=== PATIENT | male | born 1980 | race Caucasian/White ===

== ENCOUNTER 2016-09-22 21:26 | Emergency (ER) | payer OTHER | END 2016-09-22 22:14 | disposition left against medical advice (07) | LOC: UCCORT 21:26 | DX: T14.8 Other injury of unspecified body region (principal); W57.XXXA Bitten or stung by nonvenomous insect and other nonvenomous arthropods, initial encounter; Y93.9 Activity, unspecified; Y92.9 Unspecified place or not applicable; Y99.9 Unspecified external cause status; Z53.21 Procedure and treatment not carried out due to patient leaving prior to being seen by health care provider ==

== ENCOUNTER 2017-10-01 10:39 | Emergency (ER) | payer OTHER ==
[2017-10-01 11:06] VITALS: BP 124/83
--- NOTE | 2017-10-01 11:16 | UC ---
Lower Extremity/Ankle HPI - HPI Summary HPI Summary: 37 y/o male presents to the urgent care c/o left lower leg pain for the past week. Pt reports he traveled for 2 days before symptoms started. Then he was playing basketball and he made a twist and he felt a sudden pain in his left calf. He thought it was lack of stretching before doing exercise. Pain has increase and now is a throbbing pain 5/10 w/ movement w/o any radiation and 2/ 10 at rest. Pain is worse at night time. Pt has PMX of DVT and his brother had a stroke. He wants to make sure he doesn't have a clot in his leg and requests a duplex US. Pt denies fever, swelling, warm or redness around area, SOB, palpitation, chest pain, numbness or tingling over the left lower extremity, abdominal pain, N/V/D. He has not taking anything to alleviate symptoms. He has to travel to [place] for work and he is driving. - History of Current Complaint Chief Complaint: UCLowerExtremity Stated Complaint: PAIN LOWER LEFT LEG Time Seen by Provider: 10/01/17 11:13 Hx Obtained From: Patient Onset/Duration: Gradual Onset, Lasting Weeks - 1 week, Still Present, Worse Since - 2 days Severity Initially: Mild Severity Currently: Mild Pain Intensity: 5 - movement Pain Scale Used: 0-10 Numeric Aggravating Factor(s): Other - while slepping Alleviating Factor(s): Rest Able to Bear Weight: Yes - Risk Factors Gout Risk Factors: Negative DVT Risk Factors: Recent Travel, Family Hx of Clotting Disorder Septic Arthritis Risk Factor: Negative - Allergies/Home Medications Allergies/Adverse Reactions: Allergies Allergy/AdvReac Type Severity Reaction Status Date / Time cefaclor [From [facility]] Allergy Hives Verified 10/01/17 11:07 Home Medications: Home Medications NK [No Home Medications Reported] 10/01/17 [History Confirmed 10/01/17] PMH/Surg Hx/FS Hx/Imm Hx Previously Healthy: Yes - Pt denies PMHX Other History Of: Negative For: HIV, Hepatitis B, Hepatitis C, Anticoagulant Therapy - Surgical History Surgical History: Yes Surgery Procedure, Year, and Place: T&A - Family History Known Family History: Positive: None, Cardiac Disease Negative: Hypertension, Diabetes Family History: DVT, stroke - Social History Occupation: Employed Full-time Lives: With Family Alcohol Use: None Substance Use Type: None Substance Use Comment - Amount & Last Used: daily use. Last used today. Smoking Status (MU): Never Smoked Tobacco - Immunization History Most Recent Tetanus Shot: unsure Review of Systems Constitutional: Negative Skin: Negative Eyes: Negative ENT: Negative Respiratory: Negative Cardiovascular: Negative Gastrointestinal: Negative Genitourinary: Negative Motor: Negative Neurovascular: Negative Musculoskeletal: Other: - left calf pain s/p injury Neurological: Negative Psychological: Negative Is Patient Immunocompromised?: No All Other Systems Reviewed And Are Negative: Yes Physical Exam - Summary Physical Exam Summary: Vital Signs Reviewed: Yes Appearance: Well-Appearing, No Pain Distress, Well-Nourished, male w/o any apparent distress Eyes: Positive: Conjunctiva Clear - PERRLA< TAYLOR, fundi grossly WNL ENT: Positive: Normal ENT inspection, Hearing grossly normal, Pharynx normal, TMs normal, Uvula midline Neck: Positive: Supple, Nontender, No Lymphadenopathy Respiratory: Positive: Chest non-tender, Lungs clear, Normal breath sounds, No respiratory distress Cardiovascular: Positive: RRR, No Murmur, Pulses Normal, Brisk Capillary Refill Abdomen Description: Positive: Nontender, No Organomegaly, Soft. Negative: CVA Tenderness (R), CVA Tenderness (L) Bowel Sounds: Positive: Present Extremities: L extremity without deformity or asymmetry when compared to the R. No soft tissue swelling or edema. No overlying erythema, warmth, discoloration. No lesions or break in skin integrity. Diameter of calves are equal. Soft tissues of posterior lower legs are soft, supple, mild tenderness over the medial aspect of the mid left lower leg and no palpable cords or evidence of thrombophlebitis. No evidence of gangrene or compartment syndrome. Medial thigh is without soft tissue swelling or tender to palpation. Negative Homans sign. No proximal lymphangitis or lymphadenopathy. Neurological Exam: Normal Psychological Exam: Normal Skin Exam: Normal Triage Information Reviewed: Yes Vital Signs: Initial Vital Signs Temp 98.4 F 10/01/17 11:00 Pulse 63 10/01/17 11:00 Resp 14 10/01/17 11:00 BP 124/83 10/01/17 11:00 Pulse Ox 97 10/01/17 11:00 Lower Extremity Course/Dx - Course Course Of Treatment: 37 y/o male presents to the urgent care c/o left lower leg pain for the past week. Pt reports he traveled for 2 days before symptoms started. Then he was playing basketball and he made a twist and he felt a sudden pain in his left calf. He thought it was lack of stretching before doing exercise. Pain has increase and now is a throbbing pain 5/10 w/ movement w /o any radiation and 2/10 at rest. Pain is worse at night time. Pt has PMX of DVT and his brother had a stroke. He wants to make sure he doesn't have a clot in his leg and requests a duplex US. Pt denies fever, swelling, warm or redness around area, SOB, palpitation, chest pain, numbness or tingling over the left lower extremity, abdominal pain, N/V/D. He has not taking anything to alleviate symptoms. He has to travel to [place] for work and he is driving. Hx obtained. PE: WNL. Duplex ultrasound ordered to r/o DVT, Impression : normal examination, no evidence of DVT observed as per radiologist. Pt educated on results and explained that even though results are negative, he shouldn't travel until his symptoms completely resolved. Pt Advised to take Ibuprofen PO to alleviate symptoms and to avoid strenuous exercise. If not improvement of symptoms to f/u w/ his PCP 2-3 days for further treatment. D/C instructions explained. Pt understood and agreed w/ plan of care. Pt left the clinic hemodynamically stable, A&OX3 - Differential Dx/Diagnosis Differential Diagnosis/HQI/PQRI: DVT - achilles tendonitis or rupture, Sprain, Strain, Tendonitis, Other Provider Diagnoses: 1- Acute left calf pain s/p injury Discharge - Sign-Out/Discharge Documenting (check all that apply): Discharge/Admit/Transfer - D/C home - Discharge Plan Condition: Stable Disposition: HOME Patient Education Materials: Leg Pain (ED) Referrals: Kian Mccullough MD [Primary Care Provider] - 2 Days Additional Instructions: 1- Duplex US is negative today for DVT. However please avoid long trips until symptoms resolve. If your develop severe calf pain , SOB, palpitations, or chest pain go immediate to the ER for further treatment 2-Please take ibuprofen PO q6-8hrs prn as instructed after meals to alleviate pain and swelling. avoid strenuous exercise - Billing Disposition and Condition Condition: STABLE Disposition: HOME
--- NOTE | 2017-10-01 12:12 | RAD ---
INDICATION: Pain and swelling. Recent basketball injury COMPARISON: None TECHNIQUE: Duplex interrogation of the Lowerextremity was performed. FINDINGS: Deep veins: The common femoral, great saphenous, profunda femoris, proximal, mid, and distal deep femoral, popliteal, posterior tibial, and peroneal veins are patent. There is normal compressibility, augmentation, and phasic flow. Superficial veins: There are no findings of superficial thrombophlebitis. Popliteal fossa:There is no evidence of a popliteal cyst. Soft tissues:There are no soft tissue abnormalities. IMPRESSION: Normal examination. No evidence of deep venous thrombosis
== END 2017-10-01 13:25 | disposition home or self-care (01) ==
LOC: UCCORT 10:39
DX: M79.662 Pain in left lower leg (principal); X50.1XXA Overexertion from prolonged static or awkward postures, initial encounter; Y93.67 Activity, basketball; Y92.9 Unspecified place or not applicable; Z86.718 Personal history of other venous thrombosis and embolism; Z82.3 Family history of stroke; Z82.49 Family history of ischemic heart disease and other diseases of the circulatory system; Z88.8 Allergy status to other drugs, medicaments and biological substances
CPT/HCPCS: 99211; G0463